=== PATIENT | male | born 1945 | race Caucasian/White ===

== ENCOUNTER 2023-01-22 02:18 | Emergency (ER) | payer OTHER, MEDICARE ==
[~2023-01-22] VITALS: Ht 167.6 cm; Wt 85.9 kg
[2023-01-22] MEDS ORDERED: oxymetazoline 15 ML nasal spray NS ONE (02:40)
[2023-01-22] MEDS ORDERED: cloNIDine 0.1 mg tablet PO ONE (02:55)
[2023-01-22] MEDS ORDERED: AMOX-117 PO (04:23)
[2023-01-22 04:32] VITALS: BP 174/79
== END 2023-01-22 04:37 | disposition home or self-care (01) ==
LOC: ER 02:19
DX: R04.0 Epistaxis (principal); I11.0 Hypertensive heart disease with heart failure; I50.9 Heart failure, unspecified; E11.9 Type 2 diabetes mellitus without complications; K21.9 Gastro-esophageal reflux disease without esophagitis
CPT/HCPCS: 30901; 99284

== ENCOUNTER 2023-01-23 08:19 | Emergency (ER) | payer OTHER, MEDICARE ==
[~2023-01-23] VITALS: Ht 167.6 cm; Wt 85.9 kg
[~2023-01-23 08:19] MED LIST: AMOX-117 PO
[2023-01-23 08:31] VITALS: BP 164/73
== END 2023-01-23 09:57 | disposition home or self-care (01) ==
LOC: ER 08:20
DX: R04.0 Epistaxis (principal); I11.0 Hypertensive heart disease with heart failure; I50.9 Heart failure, unspecified; K21.9 Gastro-esophageal reflux disease without esophagitis; E11.9 Type 2 diabetes mellitus without complications
CPT/HCPCS: 99281